=== PATIENT | male | born 1950 | race Caucasian/White ===

== ENCOUNTER 2017-01-21 14:41 | Emergency (ER) | payer MEDICARE, MEDICAID ==
[2017-01-21 15:14] VITALS: TEMP 98.1; O2SAT 100; BMI 31.6
--- NOTE | 2017-01-21 15:30 | ED PDOC ---
Arrival/HPI - General Time Seen by Provider: 01/21/17 14:44 Historian: Patient - History of Present Illness Narrative History of Present Illness (Text): 01/21/17 15:27 66 y/o male, pmh including htn/BPH/hyperlipidemia/bilateral lower leg bypass/HIV /bradycardia in the process of obtaining pace maker as he is currently following up with a highway safety engineer, yue, c/o feeling depressed and suicidal ideation x 2 days. Pt. stated that he has been feeling very depressed because he needs to be chronic medication for his bilateral lower extremities chronic pain, chronically on the pain medication, stated that he feels suicidal because of the frustration, no plain, no homicidal ideation, no auditory or visual hallucination, no fatigue or lethargy, no change in vision, no chest pain or shortness of breath, no abdominal pain, no other medical or psychological complaints. Past Medical History - Provider Review Nursing Documentation Reviewed: Yes Family/Social History - Physician Review Nursing Documentation Reviewed: Yes Family/Social History: Unknown Family HX Allergies/Home Meds Allergies/Adverse Reactions: Allergies No Known Allergies Allergy (Verified 01/21/17 15:29) Home Medications: Home Meds Medication Instructions Recorded Confirmed Amiodarone HCl [Pacerone] 200 mg PO DAILY 01/21/17 01/21/17 Aspirin [Aspirin Chewable] 1 mg PO DAILY 01/21/17 01/21/17 Atorvastatin [Lipitor] 1 tab PO HS 01/21/17 01/21/17 Diltiazem HCl [Diltiazem 24Hr ER] 1 cap PO DAILY 01/21/17 01/21/17 Docusate [Colace] 1 cap PO TID 01/21/17 01/21/17 Efavirenz/Emtricitabine/Teno 1 tab PO HS 01/21/17 01/21/17 [Atripla 600 MG-200 MG-300 MG] FLUoxetine [Prozac] 1 cap PO DAILY 01/21/17 01/21/17 Fentanyl [Fentanyl] 50 mcg TD Q72H 01/21/17 01/21/17 Ferrous Sulfate [Feosol] 1 tab PO DAILY 01/21/17 01/21/17 Gabapentin [Neurontin] 1 cap PO TID 01/21/17 01/21/17 Hydrochlorothiazide [Microzide] 1 cap PO DAILY 01/21/17 01/21/17 Isosorbide Mononitrate [Imdur] 1 cap PO DAILY 01/21/17 01/21/17 Lidocaine 5% [Lidoderm] 1 patch TD DAILY 01/21/17 01/21/17 Magnesium Oxide [Mag-Ox] 1 tab PO BID 01/21/17 01/21/17 Tamsulosin [Flomax] 1 cap PO DAILY 01/21/17 01/21/17 Temazepam [Restoril] 1 cap PO HS PRN 01/21/17 01/21/17 traMADol [Ultram] 1 cap PO TID 01/21/17 01/21/17 Review of Systems - Review of Systems Constitutional: absent: Fatigue, Fevers Eyes: absent: Vision Changes ENT: absent: Hearing Changes Respiratory: absent: SOB, Cough Cardiovascular: absent: Chest Pain Gastrointestinal: absent: Abdominal Pain, Diarrhea, Nausea, Vomiting Skin: absent: Rash, Pruritis, Skin Lesions Psychiatric: Depression, Suicidal Ideation Physical Exam Vital Signs Reviewed: Yes Vital Signs Temp Pulse Resp BP Pulse Ox 01/21/17 18:44 70 18 144/76 100 01/21/17 15:06 98.1 F 78 19 180/90 H 100 Temperature: Afebrile Blood Pressure: Hypertensive Pulse: Regular Respiratory Rate: Normal Appearance: Positive for: Well-Appearing, Non-Toxic, Comfortable Pain Distress: None Mental Status: Positive for: Alert and Oriented X 3 Finger Stick Blood Glucose: 71 - Systems Exam Head: Present: Atraumatic, Normocephalic Pupils: Present: PERRL Extroacular Muscles: Present: EOMI Conjunctiva: Present: Normal Mouth: Present: Moist Mucous Membranes Neck: Present: Normal Range of Motion Respiratory/Chest: Present: Clear to Auscultation, Good Air Exchange. No: Respiratory Distress, Accessory Muscle Use Cardiovascular: Present: Regular Rate and Rhythm, Normal S1, S2. No: Murmurs Abdomen: Present: Normal Bowel Sounds. No: Tenderness, Distention, Peritoneal Signs Back: Present: Normal Inspection Upper Extremity: Present: Normal Inspection. No: Cyanosis, Edema Lower Extremity: Present: Normal Inspection. No: Edema Neurological: Present: GCS=15, Speech Normal, Motor Func Grossly Intact, Memory Normal Skin: Present: Warm, Dry, Rashes (visible non-infected surgical scars noted on the bilateral medial aspects. ), Normal Color Psychiatric: Present: Alert, Oriented x 3, Normal Insight, Normal Concentration Medical Decision Making ED Course and Treatment: 01/21/17 15:31 -labs -ekg/chest xray -one on one -will medically clear for PES 01/21/17 19:51 -EKG: Sinus Bradycardia @ 53 BPM, no ST elevation or depression, no T wave inversion. -Chest xray show no active disease -Labs are non-significant -UA show no UTI -UDS show no acute findings -Pt. request pain med percocet for his chronic leg pain -PES Hussain evaluated the patient and he spoke to DR. Najera which the patient can be discharged home with no inpatient treatment needed. -Discharge home with education on follow up with your own pmd and psychiatrist within 2 days, return to the ER for any new or worsening signs or symptoms. - Lab Interpretations Lab Results: 01/21/17 16:40 01/21/17 16:40 Lab Results 01/21/17 18:25: Urine Opiates Screen Negative, Urine Methadone Screen Negative, Ur Barbiturates Screen Negative, Ur Phencyclidine Scrn Negative, Ur Amphetamines Screen Negative, U Benzodiazepines Scrn Negative, U Oth Cocaine Metabols Negative, U Cannabinoids Screen Negative 01/21/17 18:25: Urine Color Yellow, Urine Appearance Clear, Urine pH 6.0, Ur Specific Coulter 1.025, Urine Protein Negative, Urine Glucose (UA) Negative, Urine Ketones Negative, Urine Blood Negative, Urine Nitrate Negative, Urine Bilirubin Negative, Urine Urobilinogen 0.2, Ur Leukocyte Esterase Negative 01/21/17 16:40: Alcohol, Quantitative < 10 01/21/17 16:40: Salicylates < 1 L, Acetaminophen < 10.0 L 01/21/17 16:40: Sodium 139, Potassium 4.4, Chloride 104, Carbon Dioxide 26, Anion Gap 13, BUN 24 H, Creatinine 1.2, Est GFR ( Amer) > 60, Est GFR ( Non-Af Amer) > 60, Random Glucose 95, Calcium 9.0, Total Bilirubin 0.6, AST 77 H , ALT 106 H, Alkaline Phosphatase 105, Total Protein 8.7 H, Albumin 4.1, Globulin 4.5, Albumin/Globulin Ratio 0.9 L 01/21/17 16:40: WBC 6.9, RBC 4.02, Hgb 12.4 L, Hct 35.9 L, MCV 89.3, MCH 30.8, MCHC 34.5, RDW 13.3, Plt Count 239, MPV 10.1, Gran % 60.5, Lymph % (Auto) 26.7, Hand % (Auto) 7.7 H, Eos % (Auto) 4.8, Baso % (Auto) 0.3, Gran # 4.19, Lymph # 1.9, Hand # 0.5, Eos # 0.3, Baso # 0.02 01/21/17 15:08: POC Glucose (mg/dL) 71 - RAD Interpretation Radiology Orders: 01/21/17 15:33 CHEST PORTABLE [RAD] Stat No active disease Human Resources Operations Coordinator: Radiologist - EKG Interpretation EKG Interpretation (Text): 01/21/17 15:32 EKG: Sinus Bradycardia @ 53 BPM, no ST elevation or depression, no T wave inversion. Interpreted by ED Physician: Yes Type: 12 lead EKG Comparison: No previous EKG avail. - Medication Orders Current Medication Orders: Discontinued Medications Oxycodone/Acetaminophen (Percocet 5/325 Mg Tab) 1 tab PO STAT STA Stop: 01/21/17 19:14 Last Admin: 01/21/17 19:41 Dose: 1 tab - PA / ELECTRONIC IMAGER / Resident Statement / has reviewed & agrees with the documentation as recorded. Disposition/Present on Arrival - Present on Arrival Any Indicators Present on Arrival: No History of DVT/PE: No History of Uncontrolled Diabetes: No Urinary Catheter: No History of Decub. Ulcer: No - Disposition Have Diagnosis and Disposition been Completed?: Yes Diagnosis: Psychiatric care Disposition: HOME/ ROUTINE Disposition Time: 19:52 Patient Plan: Discharge Condition: GOOD Additional Instructions: -Discharge home with education on follow up with your own pmd and psychiatrist within 2 days, return to the ER for any new or worsening signs or symptoms. Referrals: Wenceslao Pineda [Primary Care Provider] - Follow up with primary Kleber Najera MD [Staff Provider] - Follow up with primary
--- NOTE | 2017-01-21 16:27 | RAD ---
HISTORY: medical clearance COMPARISON: No prior. FINDINGS: LUNGS: The lungs are well inflated and clear. There is linear atelectasis/scarring in the left lower lobe. PLEURA: No significant pleural effusion identified, no pneumothorax apparent. CARDIOVASCULAR: Normal. OSSEOUS STRUCTURES: No significant abnormalities. VISUALIZED UPPER ABDOMEN: Normal. OTHER FINDINGS: None. IMPRESSION: No active pulmonary disease.
[2017-01-21 16:46] LABS: ADD MANUAL DIFF? NO
[2017-01-21 16:48] LABS: BASO # 0.02 K/mm3 (0.0-2.0); BASO % 0.3 % (0.0-3.0); EOS # 0.3 (0.0-0.7); EOS % 4.8 % (1.5-5.0); GRAN # 4.19 (1.4-6.5); GRAN % 60.5 % (50.0-68.0); HEMATOCRIT 35.9 % (42.0-52.0); LYMPH # 1.9 (1.2-3.4); LYMPH % 26.7 % (22.0-35.0); MEAN CELL VOLUME 89.3 fL (80.0-105.0); MEAN CORPUSCULAR HEMOGLOBIN 30.8 pg (25.0-35.0); MEAN CORPUSCULAR HGB CONC 34.5 g/dl (31.0-37.0); MEAN PLATELET VOLUME 10.1 fl (7.0-11.0); MONO # 0.5 (0.1-0.6); MONO % 7.7 % (1.0-6.0); PLATELET COUNT 239 10^3/uL (120.0-450.0); RED CELL DISTRIBUTION WIDTH 13.3 % (11.5-14.5); WHITE BLOOD COUNT 6.9 10^3/ul (4.5-11.0)
[2017-01-21 17:00] LABS: ALB/GLOB RATIO 0.9 (1.1-1.8); ALKALINE PHOSPHATASE 105 U/L (38-133); ALT/SGPT 106 U/L (7-56); AST/SGOT 77 U/L (15-59); BILIRUBIN,TOTAL 0.6 mg/dL (0.2-1.3); BLOOD UREA NITROGEN 24 mg/dL (7-21); CARBON DIOXIDE 26 mmol/L (21-33); CHLORIDE 104 mmol/L (98-107); GFR AFRICAN-AMERICAN > 60; GLUCOSE,RANDOM 95 mg/dL (70-110); POTASSIUM 4.4 mmol/L (3.6-5.0); SODIUM 139 mmol/L (132-148); TOTAL PROTEIN 8.7 g/dL (5.8-8.3)
[2017-01-21 18:42] LABS: URINE BILIRUBIN NEGATIVE (NEGATIVE); URINE BLOOD NEGATIVE (NEGATIVE); URINE GLUCOSE (UA) NEGATIVE (NEGATIVE); URINE KETONE NEGATIVE (NEGATIVE); URINE LEUKOCYTE ESTERASE NEGATIVE Leu/uL (NEGATIVE); URINE PROTEIN NEGATIVE mg/dL (<30 mg/dL); URINE UROBILINOGEN 0.2 E.U./dL (<1 E.U./dL)
[2017-01-21 18:45] VITALS: BP 144/76; PULSE 70; RESP 18
[2017-01-21] MEDS ORDERED: Oxycodone/Acetaminophen 5/325 mg Tab PO STA (19:13)
[2017-01-21 19:16] LABS: URINE APPEARANCE CLEAR (CLEAR); URINE COLOR YELLOW (YELLOW)
--- NOTE | 2017-01-22 09:44 | CARD ---
APPROVED REPORT EKG Measurement Heart [id number] <Conclusion> Sinus bradycardia Left axis deviation Nonspecific T wave abnormality PRWP V 1 - 6
== END 2017-01-21 20:33 | disposition home or self-care (01) ==
LOC: ED 14:41 → MERGE 14:41 → ED 20:33
DX: Z00.8 Encounter for other general examination (principal); F32.9 Major depressive disorder, single episode, unspecified; I10 Essential (primary) hypertension; E78.5 Hyperlipidemia, unspecified
CPT/HCPCS: 71010; 80053; 81003; 82948; 85025; 90791; 93005; 99285; G0480